=== PATIENT | male | born 1960 | race Caucasian/White ===

== ENCOUNTER 2019-08-02 16:11 | Outpatient (REF) | payer BC, SELFPAY ==
[2019-08-02 20:40] LABS: HCT 40.3 % (40.0-50.0); HGB 14.1 g/dL (13.5-17.5); Mean Corpuscular Hemoglobin 32.1 pg (27.0-33.0); Mean Corpuscular Volume 91.8 fL (80-95); Mean Platelet Volume 12.6 fL (8.0-11.0); Platelet Count 180 x1000/uL (130-400); RBC 4.39 m/cumm (4.50-6.00); RBC Distribution Width 13.3 % (11.8-14.1); White Blood Cell Count 6.18 k/cumm (4.4-10.8)
[2019-08-02 21:00] LABS: Anion Gap 5.3 mmol/L (3-11); BUN 16 mg/dL (7-18); CO2 29.7 mmol/L (21.0-32.0); CREATININE 0.62 mg/dL (0.70-1.30); Calcium 9.4 mg/dL (8.5-10.1); Calculated LDL 96 mg/dL (<100); Chloride 105 mmol/L (98-107); Cholesterol 166 mg/dL (<200); Glucose 84 mg/dL (74-106); HDL Cholesterol 38 mg/dL (40-60); Potassium 4.2 mmol/L (3.5-5.1); Sodium 140 mmol/L (136-145); Triglyceride 164 mg/dL (<150)
[2019-08-02 21:16] LABS: C-Reactive Protein 0.05 mg/dL (0.0-0.3)
[2019-08-02 21:22] LABS: ESR 25 mm/hr (1-20)
[2019-08-05 11:46] LABS: Hepatitis A Antibody IgM Negative (Negative); Hepatitis B Core Antibody Negative (Negative); Hepatitis B surface Ag Negative (Negative); Hepatitis C Ab w Rflx HCV PCR Negative (Negative)
== END 2019-08-02 16:31 ==
LOC: NCHCN 16:11
PROVIDERS: Visit Provider Nurse Practitioner Family
DX: R53.83 Other fatigue (principal); B35.4 Tinea corporis; M79.10 Myalgia, unspecified site; J30.2 Other seasonal allergic rhinitis; J45.20 Mild intermittent asthma, uncomplicated; Z11.59 Encounter for screening for other viral diseases
CPT/HCPCS: 80048; 80061; 85027; 85652; 86704; 86709; 86803; 87340; 84443; 86140

== ENCOUNTER 2022-04-20 14:09 | Outpatient (REF) | payer MEDICAID, SELFPAY ==
--- NOTE | 2022-04-20 13:00 | SKI_PTH ---
PATIENT: Tony Kaye LOC: [facility]#:[id number] AGE/SX: 61/M ROOM: RE04/20/[address]: Maria Elena Cabello : 1960 BED: DIS: 04/20/2022 SPEC #: [id number] RECD: 04/21/22 12:45 STATUS: NURIA REPetra #: [id number] SHEREEN: 04/20/22 13:[address]: Maria Elena Cabello DEPT: Surgical Specimen RECD BY: Jannet Benitez Tissues: 1 - SKIN BIOPSY(SHAVE/PUNCH) Procedures: SKIN LEVEL 4 Comments: [id number]
== END 2022-04-20 14:10 | disposition home or self-care (01) ==
LOC: NCHCN 14:09
PROVIDERS: Visit Provider Nurse Practitioner Family
DX: D23.5 Other benign neoplasm of skin of trunk
CPT/HCPCS: 88305

== ENCOUNTER 2022-06-07 18:37 | Outpatient (REF) | payer MEDICAID, SELFPAY ==
[2022-06-07 21:02] LABS: HCT 40.7 % (40.0-50.0); MCHC 34.4 % (32.0-36.0); MCV 90 fL (80-95); MPV 12.4 fL (8.0-11.0); Platelet Count 187 10^3/uL (130-400); RBC 4.52 10^6/uL (4.36-5.78); RDW 13.3 % (11.8-14.1); RDW-SD 44.1 fL; WBC 7.18 10^3/uL (4.4-10.8)
[2022-06-07 21:34] LABS: ALT 37 U/L (16-63); AST 36 U/L (15-37); Albumin 3.7 g/dL (3.4-5.0); Alkaline Phosphatase 70 U/L (46-116); Anion Gap 9.6 mmol/L (3-11); BUN 19 mg/dL (7-18); Bilirubin, Total 0.2 mg/dL (0.2-1.0); CO2 25.4 mmol/L (21.0-32.0); CREATININE 0.6 mg/dL (0.70-1.30); Calcium 9.4 mg/dL (8.5-10.1); Calculated LDL 129 mg/dL (<100); Chloride 105 mmol/L (98-107); Cholesterol 215 mg/dL (<200); Ferritin 56 ng/mL (26-388); Glucose 91 mg/dL (74-106); HDL Cholesterol 44 mg/dL (40-60); Potassium 4.1 mmol/L (3.5-5.1); Sodium 140 mmol/L (136-145); TSH 1.47 uIU/mL (0.36-3.74); Total Protein 7.2 g/dL (6.4-8.2); Triglyceride 213 mg/dL (<150)
[2022-06-07 21:39] LABS: Vitamin D 25 Total 22.8 ng/mL (30-100)
[2022-06-08 18:29] LABS: PSA, Screening 0.9 ng/mL (<=3.5)
== END 2022-06-07 18:38 | disposition home or self-care (01) ==
LOC: NCHCN 18:37
PROVIDERS: Visit Provider Nurse Practitioner Family
DX: R53.83 Other fatigue (principal); Z13.220 Encounter for screening for lipoid disorders; Z12.5 Encounter for screening for malignant neoplasm of prostate; E55.9 Vitamin D deficiency, unspecified; R79.89 Other specified abnormal findings of blood chemistry
CPT/HCPCS: 80053; 80061; 82306; 84153; 85027; 82728; 84443

== ENCOUNTER 2022-09-09 13:50 | Outpatient (REF) | payer MEDICAID, SELFPAY ==
[2022-09-09 16:04] LABS: Vitamin D 25 Total 27.2 ng/mL (30-100)
== END 2022-09-09 13:51 | disposition home or self-care (01) ==
LOC: NCHCN 13:50
PROVIDERS: PCP Nurse Practitioner Family; Visit Provider Nurse Practitioner Family
DX: E55.9 Vitamin D deficiency, unspecified (principal)
CPT/HCPCS: 82306

== ENCOUNTER 2023-09-13 15:11 | Outpatient (REF) | payer MEDICAID, SELFPAY ==
--- NOTE | 2023-09-13 14:00 | SKI_PTH ---
PATIENT: Tony Kaye LOC: [facility]#:[id number] AGE/SX: 63/M ROOM: RE09/13/[address]: Maria Elena Cabello : 1960 BED: DIS: 09/13/2023 SPEC #: [id number] RECD: 09/18/23 13:06 STATUS: NURIA REPetra #: [id number] SHEREEN: 09/13/23 14:[address]: Maria Elena Cabello DEPT: Surgical Specimen RECD BY: Jannet Benitez Tissues: 1 - SKIN BIOPSY(SHAVE/PUNCH) Procedures: SKIN LEVEL 4 Comments: [id number]
[2023-09-13 22:35] LABS: HCT 41.3 % (40.0-50.0); HGB 14.3 g/dL (13.5-17.5); MCH 31.8 pg (27.0-33.0); MCHC 34.6 % (32.0-36.0); MCV 92 fL (80-95); Platelet Count 175 10^3/uL (130-400); RBC 4.49 10^6/uL (4.36-5.78); RDW 13.5 % (11.8-14.1); RDW-SD 46.2 fL; WBC 7.29 10^3/uL (4.4-10.8)
[2023-09-13 22:52] LABS: Anion Gap 7.8 mmol/L (3-11); BUN 17 mg/dL (7-18); CO2 26.2 mmol/L (21.0-32.0); CREATININE 0.6 mg/dL (0.70-1.30); Calcium 9.5 mg/dL (8.5-10.1); Calculated LDL 134 mg/dL (<100); Chloride 109 mmol/L (98-107); Cholesterol 207 mg/dL (<200); Estimated GFR 109.83 (mL/min/1.73m2); Glucose 94 mg/dL (74-106); HDL Cholesterol 48 mg/dL (40-60); Sodium 143 mmol/L (136-145); Triglyceride 129 mg/dL (<150); Vitamin D 25 Total 23.4 ng/mL (30-100)
[2023-09-13 23:04] LABS: C-Reactive Protein < 0.50 mg/dL (<or=0.5)
[2023-09-15 17:52] LABS: Rheumatoid Factor <8.6 IU/mL (<12.0)
[2023-09-15 18:42] LABS: PSA, Screening 0.7 ng/mL (<=4.5)
[2023-09-18 13:51] LABS: Lyme Ab w Rflx to Lyme Confirm Negative (Negative)
== END 2023-09-13 15:12 | disposition home or self-care (01) ==
LOC: NCHCN 15:11
PROVIDERS: PCP Nurse Practitioner Family; Visit Provider Nurse Practitioner Family
DX: M25.552 Pain in left hip (principal); E55.9 Vitamin D deficiency, unspecified; Z13.220 Encounter for screening for lipoid disorders; Z12.5 Encounter for screening for malignant neoplasm of prostate; Z00.00 Encounter for general adult medical examination without abnormal findings; D48.7 Neoplasm of uncertain behavior of other specified sites
CPT/HCPCS: 80048; 80061; 82306; 84153; 85027; 86140; 86431; 86618; 88305